=== PATIENT | female | born 1990 | race Caucasian/White ===

== ENCOUNTER 2017-03-17 06:48 | Emergency (ER) | payer MEDICAID ==
[2017-03-17 07:52] LABS: Basophils % (Auto) 0.5 % (0.0-1.8); Eosinophils % (Auto) 1.6 % (0.0-4.3); Hematocrit 31.5 % (30.3-42.9); Hemoglobin 10.3 gm/dl (10.1-14.3); Mean Corpuscular HGB Conc 33 % (30-34); Mean Corpuscular Hemoglobin 26 pg (28-32); Mean Corpuscular Volume 81 fl (79-97); Platelet Count 299 K/mm3 (140-440); Red Cell Distribution Width 16.1 % (13.2-15.2); White Blood Count 9.2 K/mm3 (4.5-11.0)
[2017-03-17 07:58] LABS: Anion Gap 18 mmol/L; BUN/Creatinine Ratio 13.33; Blood Urea Nitrogen 8 mg/dL (7-17); Calcium 8.9 mg/dL (8.4-10.2); Carbon Dioxide 21 mmol/L (22-30); Chloride 100.9 mmol/L (98-107); Glucose 88 mg/dL (65-100); Potassium 3.6 mmol/L (3.6-5.0); Sodium 136 mmol/L (137-145)
[2017-03-17] MEDS ORDERED: TYLENOL PO ONE (08:19)
--- NOTE | 2017-03-17 08:21 | Emergency Department Report ---
HPI - General Chief Complaint: Urogenital-Female Time Seen by Provider: 03/17/17 08:10 - HPI HPI: This is a 26-year-old -Citizen Of [place] female presents to the emergency department, driving himself in to be seen, with complaint of some right lower quadrant abdominal cramping pain while at about 13 weeks. She is with one previous . She goes to [facility] [employer]. She is currently taking vitamins. She denies any dysuria, vaginal bleeding, vaginal discharge, fever, nausea, vomiting, back pain or any problems with bowel or bladder. She has a previous surgical history of appendectomy. No recent travel or sick contacts at home. ED Past Medical Hx - Past Medical History Previous Medical History?: No - Surgical History Hx Appendectomy: Yes - Social History Smoking Status: Never Smoker Substance Use Type: None - Medications Home Medications: Home Medications Medication Instructions Recorded Confirmed Last Taken Type No Known Home Medications [No 03/17/17 03/17/17 Unknown History Reported Home Medications] ED Review of Systems ROS: Stated complaint: ABDOMINAL CRAMPS Other details as noted in HPI Comment: All other systems reviewed and negative Constitutional: denies: chills, fever Eyes: denies: eye pain, eye discharge, vision change ENT: denies: ear pain, throat pain Respiratory: denies: cough, shortness of breath, wheezing Cardiovascular: denies: chest pain, palpitations Gastrointestinal: abdominal pain. denies: nausea, vomiting Genitourinary: denies: urgency, dysuria, discharge Musculoskeletal: denies: back pain, joint swelling, arthralgia Skin: denies: rash, lesions Neurological: denies: headache, weakness, paresthesias Physical Exam - Physical Exam Vital Signs: Vital Signs 03/17/17 03/17/17 07:15 08:19 Temperature 98.4 F Pulse Rate 81 Respiratory 17 18 Rate Blood Pressure 118/80 O2 Sat by Pulse 100 100 Oximetry Physical Exam: GENERAL: The patient is well-developed well-nourished. HEENT: Normocephalic. Atraumatic. Extraocular motions are intact. Patient has moist mucous membranes. Pupils equal reactive to light bilaterally. NECK: Supple. Trachea is midline. CHEST/LUNGS: Clear to auscultation. There is no respiratory distress noted. HEART/CARDIOVASCULAR: Regular. There is no tachycardia. There is no gallop rub or murmur. ABDOMEN: Abdomen is soft. Mild right lower quadrant tenderness to palpation. No guarding or rebound tenderness. No peritoneal signs. Patient has normal bowel sounds. There is no abdominal distention. SKIN: Skin is warm and dry. NEURO: The patient is awake, alert, and oriented. The patient is cooperative. The patient has no focal neurologic deficits. The patient has normal speech. MUSCULOSKELETAL: There is no tenderness or deformity. There is no limitation range of motion. There is no evidence of acute injury. ED Course Vital Signs 03/17/17 03/17/17 07:15 08:19 Temperature 98.4 F Pulse Rate 81 Respiratory 17 18 Rate Blood Pressure 118/80 O2 Sat by Pulse 100 100 Oximetry ED Medical Decision Making - Lab Data Result diagrams: 03/17/17 07:23 03/17/17 07:23 - Radiology Data Radiology results: report reviewed OB ULTRASOUND Technique: Transabdominal ultrasound with Doppler interrogation. Gestation: Single Position: Transverse head to maternal right Amniotic Fluid: Within normal limits Placenta: fundal Placental Grade: 0 Heart Rate: 155 BPM x It is too early for a anatomical survey BPD: 2.7 cm = 14 w 5 d HC: 10.4 cm = 14 w 6 d AC: 7.8 cm = 14 w 2 d FL: 1.4 cm = 14 w 0 d HC/AC Ratio: 1.34 Cephalic Index: 78.5 LMP: 12/14/16 Clinical age = 13 w 2 d EDC: 09/20/17 US Gest. Age = 14 w 3 d EDC: 09/12/17 Transcribed By: TTR Dictated By: ZAINAB KRISHNAN JR, MD Electronically Authenticated By: ZAINAB KRISHNAN JR, MD Signed Date/Time: 03/17/17 1152 - Medical Decision Making 26-year-old female presents to the emergency department with right lower quadrant discomfort but without any vaginal bleeding or discharge or dysuria at about 13 weeks . Her main concern was to make sure the is safe and viable. Labs are unremarkable including no signs of leukocytosis, electrolyte abnormalities, renal insufficiency or glucose abnormalities and there is no urinary tract infection. Ultrasound confirms intrauterine at 14 weeks and 3 days by ultrasound gestation estimation. Patient was given some Tylenol for her discomfort with only mild relief but she does not appear to have a toxic or rigid abdomen or appears in any acute distress. She has good follow-up with primary care [employer] and has been encouraged to follow up with them on Sunday. She will resent to the emergency department sooner with any worsening of her symptoms, intractable fever or vomiting, vaginal bleeding or any acute distress. - Differential Diagnosis , fibroid, UTI, miscarriage Critical Care Time: No Critical care attestation.: If time is entered above; I have spent that time in minutes in the direct care of this critically ill patient, excluding procedure time. ED Disposition Clinical Impression: Qualifiers: Weeks of gestation: 14 weeks Qualified Code(s): Z3A.14 - 14 weeks gestation of Abdominal pain Qualifiers: Abdominal location: right lower quadrant Qualified Code(s): R10.31 - Right lower quadrant pain Disposition: DISCHARGED TO HOME OR SELFCARE Is pt being admited?: No Condition: Stable Instructions: (ED), Abdominal Pain (ED), Abdominal Pain in (ED) Additional Instructions: Please follow-up with your [employer] on Sunday. Return to the emergency department sooner with any worsening of her symptoms, vaginal bleeding, intractable fever or vomiting, or any acute distress. You can take Tylenol every 4 hours, using weight-based dosing, as needed for discomfort. [facility] [Provider Group] - 3-5 Days Time of Disposition: 12:22
[2017-03-17 08:38] VITALS: BP 112/78
[2017-03-17 10:01] LABS: Bilirubin,Urine NEG (Negative); Blood,Urine NEG (Negative); Ketones,Urine NEG (Negative); Leukocyte Esterase,Urine NEG (Negative); Mucus,Urine 1+ /HPF; Nitrite,Urine NEG (Negative); Protein,Urine <15 mg/dL mg/dL (Negative); Urobilinogen,Urine < 2.0 mg/dL (<2.0)
--- NOTE | 2017-03-17 12:00 | Ultrasound Report ---
OB ULTRASOUND Technique: Transabdominal ultrasound with Doppler interrogation. Gestation: Single Position: Transverse head to maternal right Amniotic Fluid: Within normal limits Placenta: fundal Placental Grade: 0 Heart Rate: 155 BPM x It is too early for a anatomical survey BPD: 2.7 cm = 14 w 5 d HC: 10.4 cm = 14 w 6 d AC: 7.8 cm = 14 w 2 d FL: 1.4 cm = 14 w 0 d HC/AC Ratio: 1.34 Cephalic Index: 78.5 LMP: 12/14/16 Clinical age = 13 w 2 d EDC: 09/20/17 US Gest. Age = 14 w 3 d EDC: 09/12/17
== END 2017-03-17 12:41 | disposition home or self-care (01) ==
LOC: ED 06:48
DX: O26.891 Other specified pregnancy related conditions, first trimester (principal); R10.31 Right lower quadrant pain; Z90.49 Acquired absence of other specified parts of digestive tract; Z3A.13 13 weeks gestation of pregnancy
CPT/HCPCS: 36415; 76805; 80048; 81001; 81025; 85025